=== PATIENT | male | born 1965 | race Caucasian/White ===

== ENCOUNTER 2019-07-01 01:20 | Inpatient (IN) ==
[2019-07-01 02:40] LABS: Basophils # (auto) 0.02 K/uL (0-0.2); Basophils % (auto) 0.2 %; Eosinophils # (auto) 0.14 K/uL (0-0.5); Eosinophils % (auto) 1.3 %; Hemoglobin 12.7 g/dL (14.0-18.0); Immature Granulocytes # (auto) 0.03 K/uL (0.00-0.02); Immature Granulocytes % (auto) 0.3 %; Lymphocytes # (auto) 0.52 K/uL (1.2-3.4); Lymphocytes % (auto) 4.9 %; Mean Corpuscular Hemoglobin 32.5 pg (25-34); Mean Corpuscular Hgb Conc 33.4 g/dL (32-36); Mean Corpuscular Volume 97.2 fL (80-100); Mean Platelet Volume 10.4 fL (7.4-10.4); Monocytes # (auto) 0.86 K/uL (0.11-0.59); Neutrophils # (auto) 9.15 K/uL (1.4-6.5); Neutrophils % (auto) 85.3 %; Platelet Count 204 K/uL (130-400); RDW Coefficient of Variation 13.6 % (11.5-14.5); RDW Standard Deviation 47.5 fL (36.4-46.3); Red Blood Count 3.91 M/uL (4.7-6.1); White Blood Count 10.72 K/uL (4.8-10.8)
[2019-07-01 02:58] LABS: Alanine Aminotransferase 37 U/L (12-78); Albumin Level 3.1 gm/dl (3.4-5.0); Aspartate Aminotransferase 20 U/L (15-37); BUN Creatinine Ratio 17.9 (10-20); Bilirubin Direct 0.5 mg/dl (0-0.2); Blood Urea Nitrogen 24 mg/dl (7-18); Calcium 8.5 mg/dl (8.5-10.1); Carbon Dioxide 23 mmol/L (21-32); Chloride 105 mmol/L (98-107); Creatinine Clr Calc Pharmacy 124.7 ml/min; Est GFR (African American) 69.7; Est GFR (Non-African American) 60.2; Glucose 220 mg/dl (70-99); Lipase 116 U/L (73-393); Magnesium 1.6 mg/dl (1.8-2.4); Potassium 3.9 mmol/L (3.5-5.1); Sodium 137 mmol/L (136-145)
[2019-07-01 03:09] LABS: Alkaline Phosphatase 121 U/L (45-117); Bilirubin,Total 1.7 mg/dl (0.2-1); Total Protein 6.3 gm/dl (6.4-8.2); Troponin I < 0.015 ng/ml (0-0.045)
[2019-07-01] MEDS ORDERED: DAPTOmycin 825 MG in SYRINGE 0 ML IV ONE (03:22)
[2019-07-01] MEDS ORDERED: SODIUM CHLORIDE 0.9% 1000ML 1,000 ML IV ONE ×3 (03:22→04:30)
[2019-07-01] MEDS ORDERED: PIPERACILLIN/TAZOBACTAM 4.5 GM/120 ML BAG IV ONE (03:29)
[2019-07-01] MEDS ORDERED: PIPERACILL/TAZOBAC CONSULT ACTIVE PRN (03:29)
[2019-07-01] MEDS ORDERED: POTASSIUM CHLORIDE 20 MEQ TABCR PO STA (04:38)
[2019-07-01] MEDS ORDERED: MAGNESIUM SULFATE / D5W 1 GM/100 ML BAG IV SCH ×2 (05:00→09:00)
[2019-07-01 05:08] LABS: Ferritin 148.2 ng/ml (8-388); Iron 49 mcg/dl (35-175); NT Pro B Type Natriuretic Pept 186 pg/ml (0-900); Total Iron Binding Capacity 280 mcg/dl (250-450); Transferrin 215 mg/dl (200-360)
--- NOTE | 2019-07-01 05:22 | History & Physical Report ---
Date of Service July 01, 2019 Assessment & Plan (1) Sepsis: Secondary to right groin cellulitis Chest pain, S OB Rule out PE hx arm clot as per patient New onset anemia, secondary to right groin bleed chronic CHF, equivocal volume status Pulmonary congestion on x-ray with normal BNP, patient intravascularly dry hx bicuspid aortic valve status post bioprosthetic AVR hypertension, BP on the lower side hyperlipidemia on statin Rx ARELY on BiPAP mood disorder, at baseline prediabetes on oral medications Medical telemetry Cultures, follow lactic acid IV Daptomycin, Cefepime VQ scan RE chest pain rule out PE (CAT scan precluded by patient morbid obesity/girth) Check TTE RE chest pain Trend H&H, transfuse PRBC if hemoglobin less than 7 and/or for symptomatic anemia Anemia work-up Appropriate to hold aspirin for now given right groin bleed Resume home Lasix once volume status improved. ISS BG goal 140-180, basal insulin, check hemoglobin A1c DVT prophylaxis. SCDs RE right groin bleed Full code Patient's requesting updates from providers. Ms. Nicolette Moreno, contact #[phone]. History of Present Illness Primary Care Provider: Dr. Cross from [place] History obtained from patient and family. Medical history significant for chronic CHF, hx bicuspid aortic valve status post bioprosthetic AVR, hypertension, hyperlipidemia, ARELY on BiPAP, mood disorder, prediabetes, hx of arm clot as per patient. Patient is a resident of [place] who is passing town from [place] (where he had attended recent ordination into [employer] of son 2 days ago). Patient stopped taking water pills the last few days due to inconvenience of taking medication during travel. Patient noted increase in usual right inguinal swelling with bloody drainage. Patient noted increased abdominal distention without pain, fluid retention, leg swelling. Yesterday at the [facility] in [place], patient experienced pleuritic chest pain and shortness of breath. No unusual cough symptoms. Patient denies black/bloody stools, hematuria symptoms. At the ER, patient received Daptomycin and Zosyn for sepsis. Medical History as above Surgical History : AVR Family History : Heart disease, diabetes Personal/Social history : Non-smoker, no EtOH intake, disabled Medical History as above Surgical History : Family History : Personal/Social history : Allergies Allergy/AdvReac Type Severity Reaction Status Date / Time erythromycin base Allergy Severe severe Verified 07/01/19 01:51 vomiting sulfamethoxazole Allergy Intermediate umesh Verified 07/01/19 01:54 [From Bactrim] lynda syndrome trimethoprim [From Bactrim] Allergy Intermediate umesh Verified 07/01/19 01:54 lynda syndrome cephalexin [From Keflex] Allergy Mild Vomiting Verified 07/01/19 01:52 clindamycin Allergy Mild Rash Verified 07/01/19 01:50 tetracycline Allergy Mild Rash Verified 07/01/19 01:52 vancomycin Allergy Mild Rash Verified 07/01/19 01:53 Home Medications Home Medications Medication Instructions Recorded Confirmed Type albuterol sulfate 2.5 mg INHALATION Q4H PRN 07/01/19 07/01/19 History allopurinol 300 mg PO DAILY 07/01/19 07/01/19 History duloxetine 60 mg PO DAILY 07/01/19 07/01/19 History ergocalciferol (vitamin D2) 50,000 unit PO DAILY 07/01/19 07/01/19 History [Vitamin D2] furosemide [Lasix] 40 mg PO BID 07/01/19 07/01/19 History glimepiride 2 mg PO QAM 07/01/19 07/01/19 History hydroxyzine HCl 25 mg PO 3XWK 07/01/19 07/01/19 History lisinopril 10 mg PO DAILY 07/01/19 07/01/19 History mv,Ca,xwr-CV-G1-lycopene-lutn 1 tab PO DAILY 07/01/19 07/01/19 History [[place]] omeprazole 20 mg PO DAILY 07/01/19 07/01/19 History potassium chloride 10 meq PO DAILY 07/01/19 07/01/19 History simvastatin 20 mg PO PM 07/01/19 07/01/19 History Past Med/Surg History Surgical History H/O aortic valve replacement Social History Preferred Language: Albanian Communication Ability: Effective Email Marketing Intern Required: No Beliefs That Will Affect Care: None marital status: Current Living Situation: Spouse Feels Safe at Home: Yes Safety Concerns: Feels Safe At This Time Smoking Status: Former smoker Tobacco Type: cigarettes ; Hx Alcohol Use: No Hx Substance Use: No Review of Systems Review of Systems: As per HPI, all 10 systems reviewed, all other ROS negative Physical Exam Physical Exam: GENERAL: Comfortable, morbidly obese, no respiratory distress, looks older than stated age SKIN: Pallor , warm HEENT: [place] palpebral conjunctivae, no ptosis, dry buccal mucosa NECK : Supple, short neck, no tenderness CHEST : CTA, erythematous inframammary folds, healed sternal scar, no tenderness HEART : Tachycardic. no obvious murmurs ABDOMEN: distention, nontender, indurated inguinal areas right greater than the left with dried blood EXTREMITIES : Bilateral LE swelling, no LE tenderness, no other conspicuous deformities noted NEUROLOGIC : Coherent, no facial asymmetry, no other gross focality Results & Data Vital Signs (Past 12 Hours) Vital Signs Temp Pulse Resp BP Pulse Ox 07/01/19 05:01 119 H 17 109/71 100 07/01/19 04:39 116 H 24 109/50 L 97 07/01/19 02:24 96 07/01/19 01:28 120 H 38 H 123/69 98 07/01/19 01:25 37.1 C 121 H 24 123/69 98 Laboratory Results Laboratory Results WBC 10.72 K/uL (4.8-10.8) 07/01/19 02:27 RBC 3.91 M/uL (4.7-6.1) L 07/01/19 02:27 Hgb 12.7 g/dL (14.0-18.0) L 07/01/19 02:27 Hct 38.0 % (42-52) L 07/01/19 02:27 MCV 97.2 fL (80-100) 07/01/19 02:27 MCH 32.5 pg (25-34) 07/01/19 02:27 MCHC 33.4 g/dL (32-36) 07/01/19 02:27 RDW Std Deviation 47.5 fL (36.4-46.3) H 07/01/19 02:27 RDW Coeff of Felice 13.6 % (11.5-14.5) 07/01/19 02:27 Plt Count 204 K/uL (130-400) 07/01/19 02:27 MPV 10.4 fL (7.4-10.4) 07/01/19 02:27 Immature Gran % (Auto) 0.3 % 07/01/19 02:27 Neut % (Auto) 85.3 % 07/01/19 02:27 Lymph % (Auto) 4.9 % 07/01/19 02:27 [place] % (Auto) 8.0 % 07/01/19 02:27 Eos % (Auto) 1.3 % 07/01/19 02:27 Baso % (Auto) 0.2 % 07/01/19 02:27 Immature Gran # (Auto) 0.03 K/uL (0.00-0.02) H 07/01/19 02:27 Neut # (Auto) 9.15 K/uL (1.4-6.5) H 07/01/19 02:27 Lymph # (Auto) 0.52 K/uL (1.2-3.4) L 07/01/19 02:27 [place] # (Auto) 0.86 K/uL (0.11-0.59) H 07/01/19 02:27 Eos # (Auto) 0.14 K/uL (0-0.5) 07/01/19 02:27 Baso # (Auto) 0.02 K/uL (0-0.2) 07/01/19 02:27 Sodium 137 mmol/L (136-145) 07/01/19 02:27 Potassium 3.9 mmol/L (3.5-5.1) 07/01/19 02:27 Chloride 105 mmol/L (98-107) 07/01/19 02:27 Carbon Dioxide 23 mmol/L (21-32) 07/01/19 02:27 Anion Gap 9.0 (3-11) 07/01/19 02:27 BUN 24 mg/dl (7-18) H 07/01/19 02:27 Creatinine 1.33 mg/dl (0.6-1.4) 07/01/19 02:27 Est Cr Clr Drug Dosing 124.7 ml/min 07/01/19 02:27 Est GFR ( Amer) 69.7 07/01/19 02:27 Est GFR (Non-Af Amer) 60.2 07/01/19 02:27 BUN/Creatinine Ratio 17.9 (10-20) 07/01/19 02:27 Glucose 220 mg/dl (70-99) H 07/01/19 02:27 Lactate 3.4 mmol/L (0.4-2.0) H* 07/01/19 02:27 Calcium 8.5 mg/dl (8.5-10.1) 07/01/19 02:27 Magnesium 1.6 mg/dl (1.8-2.4) L 07/01/19 02:27 Iron 49 mcg/dl (35-175) 07/01/19 02:27 TIBC 280 mcg/dl (250-450) 07/01/19 02:27 Transferrin 215 mg/dl (200-360) 07/01/19 02:27 Ferritin 148.2 ng/ml (8-388) 07/01/19 02:27 Total Bilirubin 1.7 mg/dl (0.2-1) H 07/01/19 02:27 Direct Bilirubin 0.5 mg/dl (0-0.2) H 07/01/19 02:27 AST 20 U/L (15-37) 07/01/19 02:27 ALT 37 U/L (12-78) 07/01/19 02:27 Alkaline Phosphatase 121 U/L (45-117) H 07/01/19 02:27 Troponin I < 0.015 ng/ml (0-0.045) 07/01/19 02:27 NT-Pro-B Natriuret Pep 186 pg/ml (0-900) 07/01/19 02:27 Total Protein 6.3 gm/dl (6.4-8.2) L 07/01/19 02:27 Albumin 3.1 gm/dl (3.4-5.0) L 07/01/19 02:27 Lipase 116 U/L (73-393) 07/01/19 02:27 TSH 2.520 uIu/ml (0.300-4.500) 07/01/19 02:27 Diagnostic Findings Chest x-ray as per my interpretation cardiomegaly, pulmonary congestion EKG as per my interpretation :Rate 120, sinus tachycardia, normal axis, no ischemia Ultrasound venous bilateral LE Dopplers initial read: Significantly limited study due to patient's body habitus/inability to tolerate compression. No evidence of DVT. (1) Sepsis Sepsis acute organ dysfunction status: unspecified Sepsis type: sepsis due to unspecified organism Qualified Code(s): A41.9 - Sepsis, unspecified organism
[2019-07-01 06:36] LABS: Partial Thromboplastin Ratio 1.2; Partial Thromboplastin Time 32.2 Seconds (21.0-31.0)
--- NOTE | 2019-07-01 06:36 | Ultrasound Report ---
US venous doppler LE BI HISTORY: Pain. Edema. bilateral leg swelling, travel, pe symptoms COMPARISON STUDY: None. FINDINGS: Limited study due to patient body habitus and discomfort. The proximal venous structures ar e not well seen. Distal deep venous structures are patent. IMPRESSION: Limited study showing no evidence for gross deep venous findings of the lower extremities. Proximal a spects of the thigh are not diagnostically seen. The above report was generated using voice recognition software. It may contain grammatical, syntax or spelling errors. Electronically signed by: Neri Ulloa M.D. 07/01/2019 6:35 AM
--- NOTE | 2019-07-01 06:41 | XRay Report ---
XR chest 1V portable CLINICAL HISTORY: left chest pain chest pain COMPARISON STUDY: No previous studies for comparison. FINDINGS: Mild cardiomegaly.. Prior median sternotomy. Mild prominence of pulmonary vasculature. Diap hragms are smooth. IMPRESSION: Mild cardiomegaly.. Pulmonary venous congestion. The above report was generated using voice recognition software. It may contain grammatical, syntax or spelling errors. Electronically signed by: Neri Ulloa M.D. 07/01/2019 6:40 AM
[2019-07-01] MEDS ORDERED: TRAMADOL HCL 50 MG TABLET PO PRN (07:00)
[2019-07-01] MEDS ORDERED: GLUCOSE 10 TABS/TUBE PO PRN (07:00)
[2019-07-01] MEDS ORDERED: GLUCAGON FOR INJ 1 MG VIAL SQ PRN (07:00)
[2019-07-01] MEDS ORDERED: INSULIN GLARGINE SOLOSTAR 100 UNITS/ML 3 ML PEN SQ STA (07:00)
[2019-07-01] MEDS ORDERED: PROMETHAZINE HCL 12.5 MG in SODIUM CHLORIDE 0.9% 50 ML IV PRN (07:00)
[2019-07-01] MEDS ORDERED: DEXTROSE 50% 50 ML SYRINGE IV PRN (07:00)
[2019-07-01] MEDS ORDERED: GLUCOSE 40% GEL 15 GM TUBE PO PRN (07:00)
[2019-07-01] MEDS ORDERED: CARBOHYDRATES FOR HYPOGLYCEMIA PO PRN (07:00)
--- NOTE | 2019-07-01 07:00 | Emergency Department Note ---
Entered by Azeem Nicolas acting as a scribe for Isra Oneill MD ED Provider Note Name: Tristan Moreno Age: 53, male Arrives Via: EMS Informant: Patient, EMS CC: Chest pain HPI: The patient is a 53 year old male who presents to the emergency department with complaints of resolved chest pain beginning tonight. Per EMS, the patient is currently traveling from [place] to [place] and [facility]. She states that the patient got out of the car to change his clothes and became SOB at that time. She notes that the patients SOB gave him chest pain that worsened with exertion. The patient reports that his pain felt like a pressure. He rated his pain as a 6/10. He also complains of leg swelling but denies any calf pain. Per EMS, the patients chest pain resolved prior to EMS arrival. The patient states that he has a history of an aortic valve replacement. He notes that he takes aspirin. ROS: See above HPI for pertinent positives & negatives. A total of 10 systems reviewed and were otherwise negative. Past Medical History: none Past Surgical History: Aortic valve replacement Family History: None Social History: , lives with family, former smoker Home Medications: Please see medication list Allergies: Please see allergy list. Physical: Vitals: BP 123/69, Pulse 121, Resp 24, Temp 98.8, O2 Sat 96 Exam: GENERAL: Patient is well appearing and in no acute distress. Morbid severe obesity. EYES: No scleral icterus, unremarkable pupils. ENT: Mucous membranes moist, no nasal congestion. NECK: No masses appreciated, no meningismus, trachea is midline. RESPIRATORY: No dyspnea. Clear to auscultation and equal bilaterally. No wheeze, no rhonchi. CARDIOVASCULAR: Regular rate and rhythm. No murmurs, rubs, gallops appreciated. GASTROINTESTINAL: Abdomen soft, non-tender, no peritonitis. Bowel sounds positive. No masses appreciated. BACK: No midline tenderness, no CVA tenderness EXTREMITIES: Normal motion all extremities, no cyanosis, no edema. NEUROLOGIC: Alert and oriented, no acute motor or sensory deficits, no focal weakness, cranial nerves grossly intact. SKIN: No jaundice, no diaphoresis. Diffuse skin excoriations under bilateral breasts and throughout lower pannus and upper thighs. Significant erythema of right inguinal canal with exudate and drainage. ED Course: Prior Medical Record, Triage/Nursing Notes, Medications, Allergies reviewed by Me Cordero: The patient was evaluated in room A9. A complete history and physical exam was performed. 0256: I reevaluated and updated the patient. He has no chest pain and SOB. His heart rate is 120. He states that his heart rate is usually normal and that 120 is high for him. Nursing had significant difficulty getting labs and IV due to the patient's body habitus. I confirmed with the certified appliance service technician that the patient is too heavy to have a CT done. 0330: I rechecked the patient. He believes that he has had Zosyn before without issues. He is agreeable to hospitalization. We are waiting for US results of his legs. 0429: I reevaluated and updated the patient. He denies any current CP or SOB. He is agreeable to hospitalization. 0432: Upon reevaluation, the patient is stable. I discussed the findings and the treatment plan with the patient. He expresses agreement and understanding. [facility] The patient will be evaluated for further management. Vital Signs: reviewed and remarkable for Tachycardia Labs: Reviewed and remarkable for elevated lactic acid Interventions: saline lock, nss bolus 2 L IV, Zosyn 4.5g IV, Daptomycin 825mg IV Imaging: CHEST X-RAY: X ray results are stated below per my interpretation: Chest: 1 view: No infiltrate, no effusion, normal cardiac border. Radiology results as stated below per my review and the radiologist's interpretation: US VENOUS BILATERAL LOWER EXTREMITIES: Significantly limited study due to patients body habitus and inability to tolerate compression. No evidence of DVT is visualized. Radiologist: Bre Andrews MD. EKG: Per My Interpretation: Indication Chest Pain: Sinus Tachy 119 bpm qt 441, no ectopy no ischemia. No previous for comparison Consults: 0432: I reviewed the patient's case with Dr. Tomlin - Hospitalist, [facility]. He will evaluate the patient for further management. Blood pressure: Elevated - Will be Evaluated by Hospitalist Disposition: Hospitalization Differentials: Differential: Cardiac Ischemia (STEMI, NSTEMI, Unstable Angina, etc), Aortic Dissection, Arrhythmia, Pulmonary Embolism, Pneumonia, Pneum othorax, MSK, Infectious, Pericarditis/Myocarditis, Esophageal Rupture, Gastrointestinal, amongst other pathologies entertained. Medical Decision Makin yr old morbidly obese male with history of aortic valve replacement who has been driving around in van with his mother and over the last week. Admits issues with treating yeast infections of panus, groin and breasts. Appears infection of right groin with drainage. He had episode of chest pain this evening associated with SHOB on trying to ambulate from car. EKG without ischemia and initial Trop negative (already had ASA PO). Too large to do CT study to rule out PE. That said, at rest he is without shortness of breath and US while limited reveals no clear findings of DVT in his legs. Without hypoxia nor hypotension, I do not feel that empiric anticoagulation would be indicated. He does have cellulitis right groin from his severe yeast infections. In setting of lactic acidosis and tachycardia this will be treated as sepsis. He is not septic shock at this time and I do not feel 30ml/kg would be appropriate in the patient. Given Zosyn and IV Dapto for abx coverage. Hospitalist consulted for further management. Impression: Sepsis, cellulitis, lactic acidosis, left-sided chest pain Isra Oneill MD The scribe's documentation has been prepared under my direction and personally reviewed by me in its entirety. I confirm that the note above accurately reflects all work, treatment, procedures, and medical decision making performed by me. Impression & Plan Sepsis, Cellulitis, Acidosis, lactic, Left-sided chest pain Past Med/Surg History Surgical History H/O aortic valve replacement Social History marital status: Current Living Situation: Family Feels Safe at Home: Yes Smoking Status: Former smoker Results & Data Vital Signs Vital Signs - 24 hr 07/01/19 01:25 07/01/19 01:28 07/01/19 02:24 Temperature 37.1 C Temperature Source Oral Sepsis Recent Fever Within 48 Hours No Sepsis Action Taken by Nursing No Action Required Pulse Rate 121 H 120 H Pulse Rate from SpO2 Sensor 122 H Respiratory Rate 24 38 H Respiratory Effort / Characteristics Non-Labored Respiratory Depth Normal Blood Pressure 123/69 123/69 Blood Pressure Mean 87 87 Pulse Oximetry 98 98 96 Oxygen Delivery Method Room Air Room Air 07/01/19 04:39 07/01/19 05:01 Temperature Temperature Source Sepsis Recent Fever Within 48 Hours Sepsis Action Taken by Nursing Pulse Rate 116 H 119 H Pulse Rate from SpO2 Sensor 116 H 118 H Respiratory Rate 24 17 Respiratory Effort / Characteristics Respiratory Depth Blood Pressure 109/50 L 109/71 Blood Pressure Mean 69 83 Pulse Oximetry 97 100 Oxygen Delivery Method Home Medications Current Medication List: was personally reviewed by me Laboratory Data Attestation: I reviewed the patient's lab results. Result diagrams: 07/01/19 02:27 07/01/19 02:27 Lab Results 07/01/19 07/01/19 07/01/19 Range/Units 02:27 02:27 02:27 WBC 10.72 (4.8-10.8) K/uL RBC 3.91 L (4.7-6.1) M/uL Hgb 12.7 L (14.0-18.0) g/dL Hct 38.0 L (42-52) % MCV 97.2 (80-100) fL MCH 32.5 (25-34) pg MCHC 33.4 (32-36) g/dL RDW Std Deviation 47.5 H (36.4-46.3) fL RDW Coeff of Felice 13.6 (11.5-14.5) % Plt Count 204 (130-400) K/uL MPV 10.4 (7.4-10.4) fL Immature Gran % (Auto) 0.3 % Neut % (Auto) 85.3 % Lymph % (Auto) 4.9 % [place] % (Auto) 8.0 % Eos % (Auto) 1.3 % Baso % (Auto) 0.2 % Immature Gran # (Auto) 0.03 H (0.00-0.02) K/uL Neut # (Auto) 9.15 H (1.4-6.5) K/uL Lymph # (Auto) 0.52 L (1.2-3.4) K/uL [place] # (Auto) 0.86 H (0.11-0.59) K/uL Eos # (Auto) 0.14 (0-0.5) K/uL Baso # (Auto) 0.02 (0-0.2) K/uL APTT (21.0-31.0) Seconds PTT Ratio Sodium 137 (136-145) mmol/L Potassium 3.9 (3.5-5.1) mmol/L Chloride 105 (98-107) mmol/L Carbon Dioxide 23 (21-32) mmol/L Anion Gap 9.0 (3-11) BUN 24 H (7-18) mg/dl Creatinine 1.33 (0.6-1.4) mg/dl Est Cr Clr Drug Dosing 124.7 ml/min Est GFR ( Amer) 69.7 Est GFR (Non-Af Amer) 60.2 BUN/Creatinine Ratio 17.9 (10-20) Glucose 220 H (70-99) mg/dl Lactate 3.4 H* (0.4-2.0) mmol/L Calcium 8.5 (8.5-10.1) mg/dl Magnesium 1.6 L (1.8-2.4) mg/dl Iron 49 (35-175) mcg/dl TIBC 280 (250-450) mcg/dl Transferrin 215 (200-360) mg/dl Ferritin 148.2 (8-388) ng/ml Total Bilirubin 1.7 H (0.2-1) mg/dl Direct Bilirubin 0.5 H (0-0.2) mg/dl AST 20 (15-37) U/L ALT 37 (12-78) U/L Alkaline Phosphatase 121 H (45-117) U/L Troponin I < 0.015 (0-0.045) ng/ml NT-Pro-B Natriuret Pep 186 (0-900) pg/ml Total Protein 6.3 L (6.4-8.2) gm/dl Albumin 3.1 L (3.4-5.0) gm/dl Lipase 116 (73-393) U/L TSH 2.520 (0.300-4.500) uIu/ml 07/01/19 Range/Units 02:27 WBC (4.8-10.8) K/uL RBC (4.7-6.1) M/uL Hgb (14.0-18.0) g/dL Hct (42-52) % MCV (80-100) fL MCH (25-34) pg MCHC (32-36) g/dL RDW Std Deviation (36.4-46.3) fL RDW Coeff of Felice (11.5-14.5) % Plt Count (130-400) K/uL MPV (7.4-10.4) fL Immature Gran % (Auto) % Neut % (Auto) % Lymph % (Auto) % [place] % (Auto) % Eos % (Auto) % Baso % (Auto) % Immature Gran # (Auto) (0.00-0.02) K/uL Neut # (Auto) (1.4-6.5) K/uL Lymph # (Auto) (1.2-3.4) K/uL [place] # (Auto) (0.11-0.59) K/uL Eos # (Auto) (0-0.5) K/uL Baso # (Auto) (0-0.2) K/uL APTT 32.2 H (21.0-31.0) Seconds PTT Ratio 1.2 Sodium (136-145) mmol/L Potassium (3.5-5.1) mmol/L Chloride (98-107) mmol/L Carbon Dioxide (21-32) mmol/L Anion Gap (3-11) BUN (7-18) mg/dl Creatinine (0.6-1.4) mg/dl Est Cr Clr Drug Dosing ml/min Est GFR ( Amer) Est GFR (Non-Af Amer) BUN/Creatinine Ratio (10-20) Glucose (70-99) mg/dl Lactate (0.4-2.0) mmol/L Calcium (8.5-10.1) mg/dl Magnesium (1.8-2.4) mg/dl Iron (35-175) mcg/dl TIBC (250-450) mcg/dl Transferrin (200-360) mg/dl Ferritin (8-388) ng/ml Total Bilirubin (0.2-1) mg/dl Direct Bilirubin (0-0.2) mg/dl AST (15-37) U/L ALT (12-78) U/L Alkaline Phosphatase (45-117) U/L Troponin I (0-0.045) ng/ml NT-Pro-B Natriuret Pep (0-900) pg/ml Total Protein (6.4-8.2) gm/dl Albumin (3.4-5.0) gm/dl Lipase (73-393) U/L TSH (0.300-4.500) uIu/ml Administered Medications Magnesium Sulfate/Dextrose (Magnesium Sulfate / D5w) 1 gm in 100 mls @ 100 mls/hr IV Q1H CARO Stop: 07/01/19 06:59 Last Infusion: 07/01/19 06:47 Dose: 0 mls/hr Documented by: [id number] Admin: 07/01/19 05:14 Dose: 100 mls/hr Documented by: [id number] Discontinued Medications Daptomycin 825 mg/ Syringe 16.5 mls @ 8.25 mls/min IV NOW ONE; Protocol Stop: 07/01/19 03:23 Last Admin: 07/01/19 04:26 Dose: 8.25 mls/min Documented by: [id number] Sodium Chloride (Nss 1000ml) 1,000 mls @ 999 mls/hr IV .Q1H1M ONE Stop: 07/01/19 04:22 Last Infusion: 07/01/19 05:20 Dose: 0 mls/hr Documented by: [id number] Admin: 07/01/19 04:27 Dose: 999 mls/hr Documented by: [id number] Sodium Chloride (Nss 1000ml) 1,000 mls @ 999 mls/hr IV .Q1H1M ONE Stop: 07/01/19 04:22 Last Admin: 07/01/19 05:57 Dose: 999 mls/hr Documented by: [id number] Piperacillin Sod/Tazobactam Sod (Zosyn) 4.5 gm in 120 mls @ 240 mls/hr IV NOW ONE Stop: 07/01/19 03:58 Last Infusion: 07/01/19 05:21 Dose: 0 mls/hr Documented by: [id number] Admin: 07/01/19 04:27 Dose: 240 mls/hr Documented by: [id number] Potassium Chloride (Klor-Con M20) 20 meq PO NOW STA Stop: 07/01/19 04:39 Last Admin: 07/01/19 05:14 Dose: 20 meq Documented by: [id number] Discharge Plan Visit Data Chief Complaint: Cardiac Assessment Stated Complaint: CHEST PAIN/BREATHING DIFFICULTY ED Provider: Isra Oneill Discharge Problem: Sepsis, Cellulitis, Acidosis, lactic, Left-sided chest pain Patient Disposition: Being Evaluated by Hospitalist Discharge Instructions Interventions: ED Discharge Assessment Last Done: 07/01/19 06:21 Discharge Problem: Sepsis Qualifiers: Sepsis type: sepsis due to unspecified organism Sepsis acute organ dysfunction status: unspecified Qualified Code(s): A41.9 - Sepsis, unspecified organism Cellulitis Qualifiers: Site of cellulitis: trunk Site of cellulitis of trunk: groin Qualified Code(s): L03.314 - Cellulitis of groin The scribe's documentation has been prepared under my direction and personally reviewed by me in its entirety. I confirm that the note above accurately ref lects all work, treatment, procedures, and medical decision making performed by me.
[2019-07-01] MEDS ORDERED: Nursing to Pharmacy Communication ONE (07:35)
[2019-07-01] MEDS ORDERED: DAPTOMYCIN CONSULT ACTIVE PRN (08:00)
[2019-07-01] MEDS ORDERED: CEFEPIME CONSULT ACTIVE PRN (08:00)
[2019-07-01 08:17] LABS: Reticulocytes # 0.07 10^6/uL (0.02-0.10)
[2019-07-01] MEDS: INSULIN ASPART 100 UNITS/ML 3 ML PEN SC SCH ×4 (08:32→20:28)
[2019-07-01] MEDS: DULOXETINE HCL 60 MG CAP PO SCH (08:32)
[2019-07-01] MEDS: MICONAZOLE NITRATE POWDER 43 GM EXT PRN (08:33)
[2019-07-01] MEDS: allopurinoL 300 MG TAB PO SCH (08:33)
[2019-07-01] MEDS: PANTOprazole 40 MG TAB PO SCH (08:33)
[2019-07-01] MEDS: lisinopriL 10 MG TAB PO SCH (08:33)
[2019-07-01 08:48] LABS: Folate (Folic Acid) 13.6 ng/ml (>5.38)
[2019-07-01] MEDS ORDERED: CONSULT PHARMACY SCH (09:00)
--- NOTE | 2019-07-01 09:23 | Ultrasound Report ---
US abdomen ltd ascites CLINICAL HISTORY: 53 years-old Male presenting with abd distension. TECHNIQUE: Real-time grayscale ultrasound imaging of the abdomen was performed for a focused evaluati on for ascites. COMPARISON: None. FINDINGS: The 4 quadrants of the abdomen in the midline were evaluated for ascites. No fluid identified. No dis tended bowel. IMPRESSION: 1. No ascites. Electronically signed by: Davy Ballesteros M.D. 07/01/2019 9:22 AM
[2019-07-01] MEDS: CEFEPIME 2,000 MG in SYRINGE 7.5 ML IV SCH ×2 (09:58→17:15)
[2019-07-01 11:36] LABS: Estimated Average Glucose 143 mg/dl; Hemoglobin A1C 6.6 % (4.5-5.6)
[2019-07-01] MEDS: ACETAMINOPHEN 325 MG TAB PO PRN (11:36)
--- NOTE | 2019-07-01 20:58 | History & Physical Bridge Note ---
Date of Service July 01, 2019 History & Physical Bridge Note I have examined the patient, reviewed the History & Physical and in the interval since the performance of the History & Physical I have noted the following changes of clinical significance: Pt transferred to [facility] after admission due to insurance incompatability. I have reviewed the chart and saw the patient later in the day. He is feeling much better after receiving IVFs and antibiotics. He reports he was having a lot of pain in his bilateral groin similar to previous cellulitis issues. He had been driving back to [place] from a trip to [place] when he got out at a rest stop and noted sharp twinges of chest pain on the left side at times, then some on the rigth side. Each yamileth lasted seconds to one minute and this occurred multiple times over the next 10 hours approximately. He felt SOB. He had some abdominal crampins 2 days ago but that has since resolved. He is moving his bowels regularly. H ehas not taken his lasix since Sunday, but felt dehydrated. Now denies CP, denies SOB. Pain in groin is improved Unable to have CTA chest or V/Q scan due to morbid obesity ECHO almost compeltely nondiagnostic but had grossly normal LV function Morbidly obese Vitals reviewed NAD, anicteric sclerae, very pleasant, AAOx3 RRR no mgr CTAB no wcr Abd +BS soft NT ND, morbidly obese, large reducible umbilical hernia, large pannus Skin: intertrigo under breasts, abd pannus, and bilat groin with significant erythema and +TTP in bilat groin, miconazole powder now in place, weeping previously reported is resolved, AG sheets in place in folds, no bleeding Ext chronic venous stasis changes, scab right distal leg, no edema, no calf pain or tenderness 53 yo male with morbid obesity, multipl eother medical issues, here with bilateral intertrigo secondarily infected with likely Kristie and bacterial infection, elevated lactate, borderline leukocytosis, tachycardia, hypotension, cellulitis -continue to hold lasix -placed Benton as he is unable to urinate lying in bed due to morbid obesity and incontinence would worsen groin infection -keep folds of skin dry as possible -continue current abx -follow CBC, BMP -troponin neg x 2, CP very atypical, no further cardiac workup needed--> had normal cardiac cath in the last few years -as for DVT/PE-> also low suspicion, Dopplet LEs negative but couldn't visualize proximal veins well. Will NOT anticoagulate based on low suspicion CP may have been MSK or muscle cramping due to ensuing sepsis, lyte abnormalities
[2019-07-02] MEDS: CEFEPIME 2,000 MG in SYRINGE 7.5 ML IV SCH ×2 (02:01→14:20)
[2019-07-02] MEDS: DAPTOmycin 825 MG in SYRINGE 0 ML IV SCH (04:10)
[2019-07-02 06:22] LABS: Basophils # (auto) 0.01 K/uL (0-0.2); Basophils % (auto) 0.2 %; Eosinophils # (auto) 0.15 K/uL (0-0.5); Eosinophils % (auto) 3.3 %; Hematocrit (blood only) 34.1 % (42-52); Hemoglobin 11.3 g/dL (14.0-18.0); Lymphocytes # (auto) 0.31 K/uL (1.2-3.4); Lymphocytes % (auto) 6.8 %; Mean Corpuscular Hemoglobin 33.4 pg (25-34); Mean Corpuscular Hgb Conc 33.1 g/dL (32-36); Mean Corpuscular Volume 100.9 fL (80-100); Mean Platelet Volume 10.8 fL (7.4-10.4); Monocytes # (auto) 0.41 K/uL (0.11-0.59); Neutrophils # (auto) 3.66 K/uL (1.4-6.5); Neutrophils % (auto) 80.7 %; Platelet Count 158 K/uL (130-400); RDW Coefficient of Variation 13.9 % (11.5-14.5); RDW Standard Deviation 50.9 fL (36.4-46.3); Red Blood Count 3.38 M/uL (4.7-6.1); White Blood Count 4.54 K/uL (4.8-10.8)
[2019-07-02 06:55] LABS: BUN Creatinine Ratio 15.1 (10-20); Calcium 8.2 mg/dl (8.5-10.1); Creatinine Clr Calc Pharmacy 144.3 ml/min; Est GFR (African American) 83.2; Est GFR (Non-African American) 71.7
[2019-07-02] MEDS: INSULIN GLARGINE SOLOSTAR 100 UNITS/ML 3 ML PEN SQ SCH (08:43)
[2019-07-02] MEDS: DULOXETINE HCL 60 MG CAP PO SCH (08:44)
[2019-07-02] MEDS: ACETAMINOPHEN 325 MG TAB PO PRN (08:44)
[2019-07-02] MEDS: lisinopriL 10 MG TAB PO SCH (08:44)
[2019-07-02] MEDS: allopurinoL 300 MG TAB PO SCH (08:44)
[2019-07-02] MEDS: PANTOprazole 40 MG TAB PO SCH (08:44)
[2019-07-02] MEDS: INSULIN ASPART 100 UNITS/ML 3 ML PEN SC SCH ×4 (08:45→20:49)
[2019-07-02] MEDS: MICONAZOLE NITRATE POWDER 43 GM EXT PRN (13:51)
--- NOTE | 2019-07-02 15:34 | Hospitalist Progress Note ---
Date of Service July 02, 2019 Assessment & Plan (1) Sepsis: Secondary to bilat groin cellulitis. Presented with tachycardia, elevated lactate, tachypnea, and groin cellulitis. -BCxs NGTD-will follow -treating with abx as below for cellulitis -treated initially with IVFs and lactate trended downward (2) Cellulitis: -improving, less painful, WBC count down, afebrile BCxs no growth -clinically improving on exam as well -continue Cefepime, Vanco for broad range coverage given possibility of Staph, Strep, Gram negatives, Pseudomonas in a morbidly obese diabetic patient (3) Intertrigo: -with bilateral intertrigo secondarily infected with likely Kristie and bacterial infection -placed Benton as he is unable to urinate lying in bed due to morbid obesity and incontinence would worsen groin infection -keep folds of skin dry as possible -continue miconazole powder here and at home rather than nystatin cream -continue current abx as above (4) Chest pain, atypical: Presented with atypical sharp twinges of chest pain bilat chest lasting seconds to a minute each time Unable to have CTA chest or V/Q scan due to morbid obesity ECHO almost completely nondiagnostic but had grossly normal LV function -troponin neg x 2, CP very atypical, no further cardiac workup needed--> had normal cardiac cath in the last few years -as for DVT/PE-> also low suspicion, Doppler LEs negative but couldn't visualize proximal veins well. Will NOT anticoagulate based on low suspicion CP may have been MSK or muscle cramping due to ensuing sepsis, lyte abnormalities Now resolved (5) Dyspnea: as above resolved not hypoxic (6) HTN (hypertension), benign: BPs on lower side on admission, now normal -continue home lisinopril (7) Aortic valve replaced: hx bicuspid aortic valve status post bioprosthetic AVR (8) Hyperlipidemia: holding statin while on Dapto (9) Chronic diastolic CHF (congestive heart failure): chronic CHF,likely diastolic, with grossly normal EF on ECHO here Was dry on admission with sepsis and was given IVFs -continue holding lasix -follow daily weights, I/Os Pulmonary congestion on x-ray with normal BNP -restart lasix possibly tomorrow (10) Morbid obesity: BMI 69.1 Dietary consulted (11) Macrocytic anemia: MCV 100 B12 373 and FOlate normal Hgb mildly low at 11-12 -follow up with PCP (12) ARELY treated with BiPAP: -continue BiPAP qhs (13) Gout: continue allopurinol (14) GERD (gastroesophageal reflux disease): continues PPI (15) Diabetes mellitus type 2 in obese: HgbA1C here is 6.6% -continue Lantus and SSI -accuchecks -continue duloxetine-possibly for neuropathy? -holding home glimepiride (16) COPD (chronic obstructive pulmonary disease): no acute issues -continue albuterol prn (17) DVT prophylaxis: No evidence of ongoing bleeding -add Heparin 5000 units SQ q8h Dispo-remain hospitalizaed for continued IV abx, likely dc in 2 days Patient's requesting updates from providers. Ms. Nicolette Moreno, contact #[phone]. Subjective Feeling much better, less pain in groin. Denies any chest pain or SOB, denies nausea or abd pain. Is not able to ambulate much at all, uses a wheelchair for mobility, therefore has not been OOB here. Tele with NSR, rate 80-90s, PACs, PVCs Review of Systems Review of Systems: All systems reviewed & are unremarkable except as noted in HPI & below Physical Exam Physical Exam: Morbidly obese Vitals reviewed NAD, anicteric sclerae, very pleasant, AAOx3 RRR no mgr CTAB no wcr Abd +BS soft NT ND, morbidly obese, large reducible umbilical hernia, large pannus Skin: intertrigo under breasts, abd pannus, and bilat groin with much LESS eryt geovanni and MUCH LESS +TTP in bilat groin, miconazole powder now in place, aquacel AG sheets in place in folds, no bleeding : large scrotal swelling, Benton in place Ext chronic venous stasis changes, scab right distal leg, no edema, no calf pain or tenderness Results & Data Vital Signs (Past 12 Hours) Vital Signs Temp Pulse Pulse Resp BP Pulse Ox 07/02/19 08:07 36.5 C 87 20 129/75 98 07/02/19 07:28 87 07/02/19 04:00 36.8 C 95 H 20 137/72 94 07/02/19 03:48 90 18 95 Laboratory Results 07/02/19 07/02/19 07/02/19 Range/Units 20:24 17:02 11:31 WBC (4.8-10.8) K/uL RBC (4.7-6.1) M/uL Hgb (14.0-18.0) g/dL Hct (42-52) % MCV (80-100) fL MCH (25-34) pg MCHC (32-36) g/dL RDW Std Deviation (36.4-46.3) fL RDW Coeff of Felice (11.5-14.5) % Plt Count (130-400) K/uL MPV (7.4-10.4) fL Immature Gran % (Auto) % Neut % (Auto) % Lymph % (Auto) % [place] % (Auto) % Eos % (Auto) % Baso % (Auto) % Immature Gran # (Auto) (0.00-0.02) K/uL Neut # (Auto) (1.4-6.5) K/uL Lymph # (Auto) (1.2-3.4) K/uL [place] # (Auto) (0.11-0.59) K/uL Eos # (Auto) (0-0.5) K/uL Baso # (Auto) (0-0.2) K/uL Sodium (136-145) mmol/L Potassium (3.5-5.1) mmol/L Chloride (98-107) mmol/L Carbon Dioxide (21-32) mmol/L Anion Gap (3-11) BUN (7-18) mg/dl Creatinine (0.6-1.4) mg/dl Est Cr Clr Drug Dosing ml/min Est GFR ( Amer) Est GFR (Non-Af Amer) BUN/Creatinine Ratio (10-20) Glucose (70-99) mg/dl POC Glucose 169 H 167 H 196 H (70-99) Calcium (8.5-10.1) mg/dl 07/02/19 07/02/19 07/02/19 Range/Units 08:02 05:54 05:54 WBC 4.54 L (4.8-10.8) K/uL RBC 3.38 L (4.7-6.1) M/uL Hgb 11.3 L (14.0-18.0) g/dL Hct 34.1 L (42-52) % MCV 100.9 H (80-100) fL MCH 33.4 (25-34) pg MCHC 33.1 (32-36) g/dL RDW Std Deviation 50.9 H (36.4-46.3) fL RDW Coeff of Felice 13.9 (11.5-14.5) % Plt Count 158 (130-400) K/uL MPV 10.8 H (7.4-10.4) fL Immature Gran % (Auto) 0.0 % Neut % (Auto) 80.7 % Lymph % (Auto) 6.8 % [place] % (Auto) 9.0 % Eos % (Auto) 3.3 % Baso % (Auto) 0.2 % Immature Gran # (Auto) 0.00 (0.00-0.02) K/uL Neut # (Auto) 3.66 (1.4-6.5) K/uL Lymph # (Auto) 0.31 L (1.2-3.4) K/uL [place] # (Auto) 0.41 (0.11-0.59) K/uL Eos # (Auto) 0.15 (0-0.5) K/uL Baso # (Auto) 0.01 (0-0.2) K/uL Sodium 140 (136-145) mmol/L Potassium 4.0 (3.5-5.1) mmol/L Chloride 107 (98-107) mmol/L Carbon Dioxide 27 (21-32) mmol/L Anion Gap 6.0 (3-11) BUN 17 (7-18) mg/dl Creatinine 1.15 (0.6-1.4) mg/dl Est Cr Clr Drug Dosing 144.3 ml/min Est GFR ( Amer) 83.2 Est GFR (Non-Af Amer) 71.7 BUN/Creatinine Ratio 15.1 (10-20) Glucose 173 H (70-99) mg/dl POC Glucose 169 H (70-99) Calcium 8.2 L (8.5-10.1) mg/dl PG Care Time/CCT Total # of Minutes Spent Total Time Spent with Patient: Total time spent is greater than 50% in coordination of care (as documented) at patient's floor/unit and/or counseling patient: (1) Cellulitis Site of cellulitis: trunk Site of cellulitis of trunk: groin Qualified Code(s): L03.314 - Cellulitis of groin (2) Sepsis Sepsis acute organ dysfunction status: unspecified Sepsis type: sepsis due to unspecified organism Qualified Code(s): A41.9 - Sepsis, unspecified organism
[2019-07-02] MEDS: HEPARIN SOD 5,000 UNIT/0.5 ML VIAL SQ SCH (22:32)
[2019-07-03] MEDS: CEFEPIME 2,000 MG in SYRINGE 7.5 ML IV SCH ×2 (01:54→13:38)
[2019-07-03] MEDS: DAPTOmycin 825 MG in SYRINGE 0 ML IV SCH (03:52)
[2019-07-03] MEDS: HEPARIN SOD 5,000 UNIT/0.5 ML VIAL SQ SCH ×3 (06:22→21:40)
[2019-07-03] MEDS: INSULIN ASPART 100 UNITS/ML 3 ML PEN SC SCH ×4 (08:05→21:40)
[2019-07-03] MEDS: allopurinoL 300 MG TAB PO SCH (08:06)
[2019-07-03] MEDS: lisinopriL 10 MG TAB PO SCH (08:06)
[2019-07-03] MEDS: INSULIN GLARGINE SOLOSTAR 100 UNITS/ML 3 ML PEN SQ SCH (08:06)
[2019-07-03] MEDS: PANTOprazole 40 MG TAB PO SCH (08:06)
[2019-07-03] MEDS: DULOXETINE HCL 60 MG CAP PO SCH (08:06)
[2019-07-03] MEDS: FUROSEMIDE 40 MG TAB PO SCH (09:52)
[2019-07-03] MEDS: POTASSIUM CHLORIDE 10 MEQ TABCR PO SCH (09:52)
[2019-07-03] MEDS: ACETAMINOPHEN 325 MG TAB PO PRN (19:45)
--- NOTE | 2019-07-03 22:27 | Hospitalist Progress Note ---
Date of Service July 03, 2019 Assessment & Plan (1) Sepsis: Secondary to bilat groin cellulitis. Presented with tachycardia, elevated lactate, tachypnea, and groin cellulitis, and low-normal BPs Now resolved -BCxs NGTD-will follow -treating with abx as below for cellulitis -treated initially with IVFs and lactate trended downward (2) Cellulitis: Significantly improved bilat groin cellulitis, no longer painful, leukocytosis resolved, remains afebrile BCxs no growth -continue Cefepime, Dapto for broad range coverage -will dc to home tomorrow on Augmentin ; he does not have a h/o MRSA and there are no abscesses present so unlikely to have MRSA (3) Intertrigo: -with bilateral intertrigo secondarily infected with likely Kristie and bacterial infection now MUCH improved -placed Benton as he is unable to urinate lying in bed due to morbid obesity and incontinence would worsen groin infection -keep folds of skin dry as possible -continue miconazole powder here and at home rather than nystatin cream -continue current abx as above (4) Chest pain, atypical: Presented with atypical sharp twinges of chest pain bilat chest lasting seconds to a minute each time Unable to have CTA chest or V/Q scan due to morbid obesity ECHO almost completely nondiagnostic but had grossly normal LV function -troponin neg x 2, CP very atypical, no further cardiac workup needed--> had normal cardiac cath in the last few years -as for DVT/PE-> also low suspicion, Doppler LEs negative but couldn't visualize proximal veins well. Will NOT anticoagulate based on low suspicion CP may have been MSK or muscle cramping due to ensuing sepsis, lyte abnormalities Now resolved (5) Dyspnea: as above resolved not hypoxic (6) HTN (hypertension), benign: BPs on lower side on admission, now normal -continue home lisinopril -restarted home lasix but only once daily dosing (7) Aortic valve replaced: hx bicuspid aortic valve status post bioprosthetic AVR (8) Hyperlipidemia: holding statin while on Dapto (9) Chronic diastolic CHF (congestive heart failure): chronic CHF,likely diastolic, with grossly normal EF on ECHO here Was dry on admission with sepsis and was given IVFs Now with weight being up and BPs normal--> restarted lasix 40mg po qday -follow daily weights, I/Os Pulmonary congestion on x-ray with normal BNP (10) Morbid obesity: BMI 69.1 Dietary consulted (11) Macrocytic anemia: MCV 100 B12 373 and FOlate normal Hgb mildly low at 11-12 -follow up with PCP -advised to start B vitamin complex (12) ARELY treated with BiPAP: -continue BiPAP qhs (13) Gout: continue allopurinol (14) GERD (gastroesophageal reflux disease): continues PPI (15) Diabetes mellitus type 2 in obese: HgbA1C here is 6.6% -continue Lantus and SSI -accuchecks -continue duloxetine-possibly for neuropathy? -holding home glimepiride (16) COPD (chronic obstructive pulmonary disease): no acute issues -continue albuterol prn (17) DVT prophylaxis: Heparin 5000 units SQ q8h Dispo-remain hospitalized for continued IV abx, likely dc tomorrow Patient's requesting updates from providers. Ms. Nicolette Moreno, contact #[phone]. Subjective Feeling really good. Denies chest pain or SOB, denies abd pain. He had a BM today and is making urine, eating. Reports the pain in his groin is completely resolved. Tele with NSR, rates in the 90s Review of Systems Review of Systems: All systems reviewed & are unremarkable except as noted in HPI & below Physical Exam Physical Exam: Morbidly obese Vitals reviewed NAD, anicteric sclerae, very pleasant, AAOx3 RRR no mgr CTAB no wcr Abd +BS soft NT ND, morbidly obese, large reducible umbilical hernia, large pannus Skin: intertrigo under breasts, abd pannus, and bilat groin with very minimal erythema and no TTP in bilat groin, miconazole powder now in place, aquacel AG sheets in place in folds, no bleeding : large scrotal swelling, Benton in place draining clear yellow urine Ext chronic venous stasis changes, scab right distal leg, no edema, no calf pain or tenderness Results & Data Vital Signs (Past 12 Hours) Vital Signs Temp Pulse Pulse Pulse Resp BP Pulse Ox 07/03/19 19:00 37 C 95 H 20 101/63 98 07/03/19 15:18 36.8 C 94 H 19 110/67 96 07/03/19 15:15 101 H PG Care Time/CCT Total # of Minutes Spent Total Time Spent with Patient: Total time spent is greater than 50% in coordination of care (as documented) at patient's floor/unit and/or counseling patient: (1) Sepsis Sepsis acute organ dysfunction status: unspecified Sepsis type: sepsis due to unspecified organism Qualified Code(s): A41.9 - Sepsis, unspecified organism (2) Cellulitis Site of cellulitis: trunk Site of cellulitis of trunk: groin Qualified Code(s): L03.314 - Cellulitis of groin
[2019-07-04] MEDS: CEFEPIME 2,000 MG in SYRINGE 7.5 ML IV SCH (01:52)
[2019-07-04] MEDS: DAPTOmycin 825 MG in SYRINGE 0 ML IV SCH (04:17)
[2019-07-04] MEDS: HEPARIN SOD 5,000 UNIT/0.5 ML VIAL SQ SCH (06:03)
[2019-07-04] MEDS: PANTOprazole 40 MG TAB PO SCH (08:51)
[2019-07-04] MEDS: FUROSEMIDE 40 MG TAB PO SCH (08:51)
[2019-07-04] MEDS: lisinopriL 10 MG TAB PO SCH (08:51)
[2019-07-04] MEDS: POTASSIUM CHLORIDE 10 MEQ TABCR PO SCH (08:52)
[2019-07-04] MEDS: DULOXETINE HCL 60 MG CAP PO SCH (08:52)
[2019-07-04] MEDS: INSULIN GLARGINE SOLOSTAR 100 UNITS/ML 3 ML PEN SQ SCH (08:52)
[2019-07-04] MEDS: allopurinoL 300 MG TAB PO SCH (08:52)
[2019-07-04] MEDS: INSULIN ASPART 100 UNITS/ML 3 ML PEN SC SCH ×2 (08:54→12:15)
--- NOTE | 2019-07-04 10:08 | Discharge Summary ---
Date of Service July 04, 2019 Admission HPI Per Admitting Provider History obtained from patient and family. Medical history significant for chronic CHF, hx bicuspid aortic valve status post bioprosthetic AVR, hypertension, hyperlipidemia, ARELY on BiPAP, mood disorder, prediabetes, hx of arm clot as per patient. Patient is a resident of [place] who is passing town from [place] (where he had attended recent ordination into [employer] of son 2 days ago). Patient stopped taking water pills the last few days due to inconvenience of taking medication during travel. Patient noted increase in usual right inguinal swelling with bloody drainage. Patient noted increased abdominal distention without pain, fluid retention, leg swelling. Yesterday at the [facility] in [place], patient experienced pleuritic chest pain and shortness of breath. No unusual cough symptoms. Patient denies black/bloody stools, hematuria symptoms. At the ER, patient received Daptomycin and Zosyn for sepsis. Medical History as above Surgical History : AVR Family History : Heart disease, diabetes Personal/Social history : Non-smoker, no EtOH intake, disabled Medical History as above Surgical History : Family History : Personal/Social history : Principal Diagnosis Bilateral groin cellulitis, intertrigo, sepsis Discharge Exam Morbidly obese Vitals reviewed NAD, anicteric sclerae, very pleasant, AAOx3 no respiratory distress Abd +BS soft NT ND, morbidly obese, large reducible umbilical hernia, large pannus Skin: intertrigo under breasts, abd pannus, and bilat groin and upper thighs with very minimal erythema and no TTP in bilat groin, significantly improved from previous : Scrotum is normal-of note, differs from previous examination-there is a large what appears to possibly be a lipoma in the right medial proximal thigh, Benton in place draining clear yellow urine Ext chronic venous stasis changes, scab right distal leg, no edema, no calf pain or tenderness Discharge Data Allergies Allergy/AdvReac Type Severity Reaction Status Date / Time erythromycin base Allergy Severe severe Verified 07/01/19 01:51 vomiting sulfamethoxazole Allergy Intermediate umesh Verified 07/01/19 01:54 [From Bactrim] lynda syndrome trimethoprim [From Bactrim] Allergy Intermediate umesh Verified 07/01/19 01:54 lynda syndrome cephalexin [From Keflex] Allergy Mild Vomiting Verified 07/01/19 01:52 clindamycin Allergy Mild Rash Verified 07/01/19 01:50 tetracycline Allergy Mild Rash Verified 07/01/19 01:52 vancomycin Allergy Mild Rash Verified 07/01/19 01:53 Consultations 07/01/19 04:29 ED Decision to Admit Stat 07/01/19 07:00 Consult Case Management - Discharge Planning Routine Ordered Studies 07/01/19 01:31 US venous doppler LE BI Urgent 07/01/19 05:27 US abdomen ltd ascites Urgent Chest x-ray Echocardiogram Hospital Course (1) Sepsis: Secondary to bilat groin cellulitis. Presented with tachycardia, elevated lactate, tachypnea, and groin cellulitis, and low-normal BPs Now resolved -BCxs NGTD -treating with abx as below for cellulitis -treated initially with IVFs and lactate trended downward (2) Cellulitis: Significantly improved bilat groin cellulitis, no longer painful, leukocytosis resolved, remains afebrile BCxs no growth No previous history of MRSA and no abscess here, just cellulitis -Received cefepime, Dapto for broad range coverage -will dc to home today on Augmentin x7 more days (3) Intertrigo: -with bilateral intertrigo of the groin secondarily infected with likely Kristie and bacterial infection now MUCH improved -Also with intertrigo under the breast tissue and axillae bilaterally -placed Benton as he is unable to urinate lying in bed due to morbid obesity and incontinence would worsen groin infection-we will discontinue Benton catheter upon discharge -keep folds of skin dry as possible-counseled on this -continue miconazole powder daily at home rather than nystatin cream -continue antibiotics as above (4) Chest pain, atypical: Presented with atypical sharp twinges of chest pain bilat chest lasting seconds to a minute each time Unable to have CTA chest or V/Q scan due to morbid obesity ECHO almost completely nondiagnostic but had grossly normal LV function -troponin neg x 2, CP very atypical, no further cardiac workup needed--> had normal cardiac cath in the last few years -as for DVT/PE-> also low suspicion, Doppler LEs negative but couldn't visualize proximal veins well. Will NOT anticoagulate based on low suspicion CP may have been MSK or muscle cramping due to ensuing sepsis, lyte abnormalities Now resolved (5) Dyspnea: as above, likely secondary to early sepsis with tachypnea resolved not hypoxic (6) HTN (hypertension), benign: BPs on lower side on admission, now normal -continue home lisinopril -restarted home lasix but only once daily dosing (7) Aortic valve replaced: hx bicuspid aortic valve status post bioprosthetic AVR (8) Hyperlipidemia: holding statin while on Dapto-can restart on discharge (9) Chronic diastolic CHF (congestive heart failure): chronic CHF,likely diastolic, with grossly normal EF on ECHO here Was dry on admission with sepsis and was given IVFs Now with weight being up and BPs normal--> restarted lasix 40mg po qday and now with excellent urine output Pulmonary congestion on x-ray with normal BNP (10) Morbid obesity: BMI 69.1 Dietary consulted -Is on a calorie restriction of 1400 kcal/day at home and is working towards losing 100 pounds to have bariatric surgery in the future (11) Macrocytic anemia: MCV 100 B12 373 and FOlate normal Hgb mildly low at 11-12 -follow up with PCP -advised to start B vitamin complex (12) ARELY treated with BiPAP: -continue BiPAP qhs (13) Gout: continue allopurinol (14) GERD (gastroesophageal reflux disease): continues PPI (15) Diabetes mellitus type 2 in obese: HgbA1C here is 6.6% -continue Lantus and SSI -accuchecks -continue duloxetine-possibly for neuropathy? -holding home glimepiride but can restart upon discharge (16) COPD (chronic obstructive pulmonary disease): no acute issues -continue albuterol prn (17) DVT prophylaxis: Heparin 5000 units SQ q8h Dispo-stable for discharge today Total Time Total Time Spent Total Time Spent (In Minutes): Greater than 30 minutes Total Time Includes: Examination of the Patient, Discharge Planning and Medication Reconciliation Discharge Plan Discharge Items Patient Disposition: Home - Self-Care Reason For Visit: SEPSIS Discharge Diagnosis: Sepsis, cellulitis, intertrigo Condition on Discharge: Good Activity: Resume your previous activity Bathing: No limitations Non-emergency contact: Primary Care Provider Call non-emergency contact if: you have any medication questions, your symptoms worsen, your pain is not controlled, your pain is worsening, your pain is unu sual for you, your pain is concerning for you, you have a fever and your temperature is above 101 Follow-up/Referrals: PCP,NO [Primary Care Provider] - Diet: Carb Consistent or DM2 and Heart Healthy Addtl Attending Provider Instructions: Please finish out the course of Augmentin 1 tab twice daily x 7 more days for your cellulitis. You should continue using the Desenex powder underneath all your skin folds and keep the areas under skin folds as dry as possible. Please follow-up with your primary care physician within 1 week after discharge. Pending Studies at Discharge: No Stand-Alone Forms: My [facility] Medications and DC Order Prescriptions: New Desenex 2 % Powder 1 applic EXT DAILY Qty: 85 RF: 0 amoxicillin-pot clavulanate [Augmentin] 875-125 mg tablet 1 tab PO BID Qty: 14 RF: 0 Continued allopurinol 300 mg Tablet 300 mg PO DAILY RF: 0 lisinopril 10 mg Tablet 10 mg PO DAILY RF: 0 omeprazole 20 mg Capsule,Delayed Release(Dr/Ec) 20 mg PO DAILY RF: 0 simvastatin 20 mg Tablet 20 mg PO PM RF: 0 ergocalciferol (vitamin D2) [Vitamin D2] 50,000 unit Capsule 50,000 unit PO DAILY RF: 0 potassium chloride 10 mEq Tablet Extended Release 10 meq PO DAILY RF: 0 hydroxyzine HCl 25 mg Tablet 25 mg PO 3XWK RF: 0 duloxetine 60 mg Capsule,Delayed Release(Dr/Ec) 60 mg PO DAILY RF: 0 Century Mature 400-30 mcg Tablet 1 tab PO DAILY RF: 0 albuterol sulfate 2.5 mg /3 mL (0.083 %) Solution For Nebulization 2.5 mg INHALATION Q4H PRN (Reason: sob) RF: 0 glimepiride 2 mg Tablet 2 mg PO QAM RF: 0 Changed furosemide [Lasix] 40 mg Tablet 40 mg PO QAM Qty: 0 RF: 0 Discharge Orders: Discharge Order (Routine); Ordered 07/04/19 Ordered By: Divya Lora Admission Data Admit Date/Time: 07/01/19 05:29 Attending Provider: Divya Lora Admit Provider: Wili Tomlin Primary Care Provider: PCP,NO Other Providers: Divya Lora
[2019-07-04] MEDS ORDERED: ONDANSETRON 4 MG OD TAB PO STA (12:45)
== END 2019-07-04 13:15 | disposition home or self-care (01) | DRG 872 ==
LOC: ED 01:20 → SUATTDRO 05:29 → 2N 05:29